=== PATIENT | male | born 1970 | race Caucasian/White ===

== ENCOUNTER 2019-12-14 08:50 | Emergency (ER) | payer MEDICAID ==
[~2019-12-14] VITALS: Ht 165.1 cm; Wt 72.7 kg
[2019-12-14 09:40] VITALS: BP 119/74
== END 2019-12-14 09:40 | disposition home or self-care (01) ==
LOC: EMS 08:59
DX: S86.912A Strain of unspecified muscle(s) and tendon(s) at lower leg level, left leg, initial encounter (principal); I10 Essential (primary) hypertension; X58.XXXA Exposure to other specified factors, initial encounter; Y93.89 Activity, other specified; Y92.89 Other specified places as the place of occurrence of the external cause; Y99.8 Other external cause status